=== PATIENT | male | born 2000 | race Caucasian/White ===

== ENCOUNTER 2023-04-14 19:39 | Emergency (ER) | payer SELFPAY ==
--- NOTE | ~2023-04-14 | XR_ITS ---
EXAMINATION: XR chest 2V Exam Date/Time: 04/14/2023 20:49 CDT HISTORY: chest pressure Comparison: None. RESULT: Lines, tubes, and devices: None. Lungs and pleura: Clear. Cardiomediastinal silhouette: Normal. Other: No acute osseous or upper abdominal finding. IMPRESSION: No acute cardiopulmonary process. Reviewed, dictated and finalized at location K.
[2023-04-14 19:42] VITALS: BP 152/81; PULSE 86; RESP 14; TEMP 36.7; O2SAT 99
--- NOTE | 2023-04-14 19:44 | ECG_ITS ---
Measurements Intervals [place] Rate: 104 P: 56 NE: 148 QRS: 69 QRSD: 113 T: 42 QT: 326 QTc: 430 Interpretive Statements SINUS TACHYCARDIA POSSIBLE LEFT ATRIAL ENLARGEMENT [-0.1mV P WAVE IN V1/V2] INCOMPLETE RIGHT BUNDLE BRANCH BLOCK [90+ ms QRS DURATION, TERMINAL R IN V1/V2, 40+ ms S IN I/aVL/V4/V5/V6] ABNORMAL ECG NO PREVIOUS ECG AVAILABLE FOR COMPARISON Electronically Signed On 04-15-2023 12:38:40 CDT by Blane Frederick M.D.
[2023-04-14 20:02] LABS: Basophils Percent Auto 0.3 % (0.2-1.2); Eosinophils Absolute Auto 0.2 K/mm3 (0-0.3); Eosinophils Percent Auto 2.1 % (0-4.4); Hematocrit 47.7 % (42.0-52.0); Hemoglobin 16.3 g/dL (14.0-18.0); Immature Granulocyte Absolute 0.03 K/mm3 (0.00-0.031); Immature Granulocyte Percent A 0.3 % (0-0.5); Mean Corpuscular HGB Conc 34.2 g/dl (32-36); Mean Corpuscular Hemoglobin 28.4 pg (26-34); Mean Corpuscular Volume 83.2 fl (80-100); Mean Platelet Volume 9.9 fl (7.4-10.4); Monocytes Absolute Auto 0.6 K/mm3 (0.1-0.6); Monocytes Percent Auto 5.5 % (2.6-8.5); Neutrophils Absolute Auto 5.5 K/mm3 (1.3-6.7); Neutrophils Percent Auto 48.8 % (45.5-73.1); Platelet Count Result 256 k/mm3 (150-375); Red Blood Count 5.73 M/mm3 (4.6-6.20); Red Cell Distribution Width 12.4 % (11.5-14.5); White Blood Count 11.2 K/mm3 (4.5-10.0)
[2023-04-14 20:12] LABS: Alanine Aminotransferase 57 U/L (6-50); Albumin Level 4.9 g/dL (3.5-5.1); Alkaline Phosphatase 67 U/L (38-126); Anion Gap 12 mmol/L (8-16); Aspartate Amino Transferase 35 U/L (17-59); Bilirubin,Total 0.3 mg/dL (0.2-1.3); Blood Urea Nitrogen 17 mg/dL (9-20); Calcium 9.7 mg/dL (8.4-10.2); Carbon Dioxide 26 mmol/L (22-30); Chloride 103 mmol/L (98-107); Estimated CRCL calculation 124 ml/min; Estimated Glomerular Filt Rate > 60; Glucose 104 mg/dL (65-110); Potassium 3.7 mmol/L (3.4-5.0); Sodium 141 mmol/L (137-145)
[2023-04-14 22:21] VITALS: BP 146/84; PULSE 68; RESP 17; O2SAT 100
[2023-04-14 22:26] VITALS: BP 146/84; PULSE 72; RESP 20; TEMP 36.7; O2SAT 99
--- NOTE | 2023-04-15 00:35 | ED.GENADULT ---
HPI - General Adult General Chief complaint: Dizziness Stated complaint: dizzy Time Seen by Provider: 04/14/23 23:22 History of Present Illness HPI narrative: This is a 22-year-old male presenting ED with chief complaint of vertigo. Patient says starting yesterday he started to have a sensation of the urgent moving. It is triggered by head movement and resolved in between episodes. Patient had some nausea but no vomiting. Denies double vision, dysphagia, dysarthria or loss of coordination. No numbness tingling weakness in extremity. Patient also states that he gets motion sickness frequently and was on a boat earlier today which did not improve his symptoms. Patient denies URI symptoms, ear pain, loss of hearing. Denies chest pain difficulty breathing abdominal pain nausea vomiting diarrhea. Related Data Allergies Allergy/AdvReac Type Severity Reaction Status Date / Time No Known Allergies Allergy Unknown Unknown Verified 04/14/23 22:42 Exam Narrative: APPEARANCE: No apparent distress. Head: atraumatic. tympanic membranes normal EYES: EOMI, NOSE: Atraumatic NECK: Trachea midline RESPIRATORY: No increased rate of breathing, clear to auscultation CARDIOVASCULAR: RRR, ABDOMINAL: Non-distended MUSCULOSKELETAl: No obvious deformities NEURO: Alert. Cranial nerves 2-12 grossly intact. Sensation light touch, motor function cerebellar function intact for 4 extremities. Gait exam was normal. No nystagmus at rest. SKIN:: Warm, dry. Normal color PSYCHIATRIC: Normal affect Course Vital Signs Vital signs: Vital Signs Temperature 98.0 F 04/14/23 19:42 Pulse Rate 86 04/14/23 19:42 Respiratory Rate 14 04/14/23 19:42 Blood Pressure 152/81 H 04/14/23 19:42 Pulse Oximetry 99 04/14/23 19:42 Oxygen Delivery Room Air 04/14/23 19:42 Temperature 98.1 F 04/14/23 22:26 Pulse Rate 72 04/14/23 22:26 Respiratory Rate 20 04/14/23 22:26 Blood Pressure 146/84 H 04/14/23 22:26 Pulse Oximetry 99 04/14/23 22:26 Oxygen Delivery Room Air 04/14/23 22:26 Medical Decision Making [facility] Narrative Medical decision making narrative: -Presentation: 22-year-old male presenting ED with 1 day of episodic/triggerable vertigo w/ a normal neuro exam. -DDX includes but is not limited to: BPPV, posterior stroke, inner ear pathology -Co-morbidities complicating care: motion sickness -Social determinants of health: patient remodels houses for living. -External Chart Review: none -Hx from independent Sources: girlfrienjesús [facility] bedside -Independent interpretation of studies: laboratory studies were ordered per nursing protocol. They are all within normal limits. Chest x-ray is unremarkable. Independent EKG interpretation: Rhythm [sinus], Rate [104], [place] -[normal], NV -[normal], QRS [narrow], QTC [normal], T waves -[negative for concerning inversions], ST Segments - [Negative for concerning elevations] Final interpretations: sinus tachycardia tachycardia resolved without intervention. -Discussion of Management/Consultants: None -Dx tests considered but not ordered: brain imaging- posterior stroke considered but unlikely given the trigger bowl a tree the episodes, patient's young age and lack of risk factors. -Procedures: None -Interventions: meclizine, scopolamine -Shared decision making / Disposition: patient's history physical consistent with BPPV. He is able to ambulate without difficulty. Patient will be discharged with medications and instructions on how to perform the Francis maneuver. -RX Meclizine, scopolamine Vital Signs Vital Signs: Vital Signs Temperature 98.0 F 04/14/23 19:42 Pulse Rate 86 04/14/23 19:42 Respiratory Rate 14 04/14/23 19:42 Blood Pressure 152/81 H 04/14/23 19:42 Pulse Oximetry 99 04/14/23 19:42 Oxygen Delivery Room Air 04/14/23 19:42 Temperature 98.1 F 04/14/23 22:26 Pulse Rate 72 04/14/23 22:26 Respiratory Rate 20
[2023-04-15] MEDS: MECLIZINE HCL 25 MG TABLET PO (00:39)
[2023-04-15] MEDS: SCOPOLAMINE 1.5 MG PATCH TRANSDERM (00:40)
[2023-04-15 01:05] VITALS: BP 132/71; PULSE 87; RESP 16; O2SAT 100
== END 2023-04-15 01:07 | disposition home or self-care (01) ==
PROVIDERS: Emergency Provider Emergency Medicine
DX: R42 Dizziness and giddiness (principal); I45.10 Unspecified right bundle-branch block; R00.0 Tachycardia, unspecified; R94.31 Abnormal electrocardiogram [ECG] [EKG]
CPT/HCPCS: 36415; 71046; 80053; 85025; 93005; 99283; A9270

== ENCOUNTER 2023-09-07 20:35 | Emergency (ER) | payer BC, SELFPAY ==
--- NOTE | ~2023-09-07 | CT_ITS ---
EXAMINATION: CT brain wo con DATE: 09/07/2023 22:25 INDICATION: Headache. TECHNIQUE: Computed tomography (CT) of the head was performed without intravenous contrast. The mA wa s adjusted according to patient size. Iterative reconstruction technique was employed. The dose-lengt h product was 605.33 mGy-cm. COMPARISON: None FINDINGS: There is no intracranial hemorrhage, acute infarction, or abnormal intracranial mass lesion . The ventricles are normal in size. The paranasal sinuses are clear. The mastoid air cells are jo l. IMPRESSION: 1. Normal brain. Reviewed, dictated and finalized at location E. HIC [employer] WORKER IMPRESSION: 1. Normal brain.
[2023-09-07 20:38] VITALS: BP 182/65; PULSE 83; RESP 18; TEMP 36.4; O2SAT 100
--- NOTE | 2023-09-07 21:11 | PC.NURSE ---
pt come in with multiple complaints. pt c/o dizziness, palpitations, fatigue, mental confusion, and nausea. pt states this has been going on for awhile. pt in no acute distress. pt A&Ox4, denies any chest pain at this time, airway patent, breathing even/unlabored. gait steady, skin pink warm and dry.
--- NOTE | 2023-09-07 22:02 | ECG_ITS ---
Measurements Intervals [place] Rate: 80 P: 42 [place]: 152 QRS: 62 QRSD: 111 T: 36 QT: 361 QTc: 418 Interpretive Statements SINUS RHYTHM INTRAVENTRICULAR CONDUCTION DELAY BORDERLINE ECG COMPARED TO ECG 04/14/2023 19:51:12 SINUS RHYTHM NOW PRESENT Electronically Signed On 09-08-2023 6:42:00 [employer] by Christos Varela D.O.
--- NOTE | 2023-09-07 22:04 | ED.DIZZY ---
HPI - Dizziness General Chief Complaint: Dizziness Stated Complaint: dizzy Time Seen by Provider: 09/07/23 21:35 Source: patient Limitations: no limitations History of Present Illness HPI Narrative: Patient is a 23-year-old male presents to the emergency department with multiple complaints. Patient states for multiple months he has been experiencing intermittent dizziness that he describes as sometimes feeling spinning that comes on with fast movements mother goes away promptly and also sometimes feels brain fog 1 at work and trying to focus and also is frequently getting motion sickness when driving in cars and he has been trying trauma main regularly. Patient denies seeing a primary care physician regular basis and has never seen a ENT. Patient admits to having an upcoming appoint with her primary care physician after finally obtaining health insurance. Patient is also concerned that he may have blood sugar issues because when he was feeling somewhat of the brain for today he took a glucose supplemented is present at work in the 1st aid kit and it seemed to help him. Patient admits to intermittent nausea with the dizziness. Patient also admits to occasional headaches that are dull and has a mild 1 currently it is generalized, nonradiating, not maximal intensity upon onset, denies anyone having similar symptoms around him, denies any recent injuries. Patient denies fever, cough, chest pain, shortness of breath, abdominal pain, vomiting, diarrhea, rash, numbness, weakness, ear pain, hearing changes, neck stiffness, sore throat, nasal congestion, dysuria, urinary frequency, urinary urgency, bloody bowel movements. Patient admits to his urine being typically darker in color and has been now well hydrated. Patient also works long hours at work and was sent 9 maintaining good nourished min during those times. Patient denies anything acutely changing prompting him to seek evaluation today right leg he has never had any blood work done and wanted to get checked out. Related Data Allergies Allergy/AdvReac Type Severity Reaction Status Date / Time No Known Allergies Allergy Unknown Unknown Verified 09/07/23 20:45 Review of Systems Review of Systems: A 10 system review of systems was completed on the patient and is negative except for what is stated in the HPI. Nursing and ancillary documentation was reviewed. PMFSH Comments At time of signature, I have reviewed and agree with nursing past medical, surgical, social and family history unless otherwise noted. Please see the nursing chart for further information. There is no relevant family history pertinent to the presenting complaint. Exam Narrative: CONST: No acute distress. Well nourished. HENMT: Head is normocephalic and atraumatic. Moist mucous membranes. No posterior oropharynx erythema. Bilateral tympanic membranes are without injection or bulging. No fluid in the middle ear cavities bilaterally. Bilateral ear canals are without erythema. EYES: No conjunctival icterus, injection, or pallor. PERRL. No nystagmus. Extraocular motions intact. NECK: No meningeal signs. No carotid bruits bilaterally. RESP: Able to speak in full sentences. Normal respiratory effort. CTAB. CARDIO: Regular rate. Regular rhythm. 2+ DP and radial pulses bilaterally. GI: Nondistended. No tenderness to palpation. Soft. : No CVA tenderness to palpation. SKIN: No rashes or lesions noted on exposed skin. NEURO: Oriented x3. Moves all extremities. No focal neurological deficits. Negative Tammie-Hallpike bilaterally. No dysmetria with [id number] testing bilaterally. Stable gait. EXTREM/MSK/BACK: No pedal edema. PSYCH: Normal affect. Course Vital Signs Vital signs: Vital Signs Temperature 97.6 F 09/07/23 20:38 Pulse Rate 83 09/07/23 20:38 Respiratory Rate 18 09/07/23 20:38 Blood Pressure 182/65 H 09/07/23 20:38 Pulse Oximetry 100 09/07/23 20:38 Oxygen Delivery Room Air 09/07
[2023-09-07] MEDS: SODIUM CHLORIDE 0.9% IV 1,000 ML 999 ML IV CONT (22:30)
[2023-09-07] MEDS: PROCHLORPERAZINE EDISYLATE 10 MG/2 ML VIAL IV PUSH (22:31)
[2023-09-07] MEDS: KETOROLAC 15 MG/ML VIAL (*BKC) IV PUSH (22:31)
[2023-09-07] MEDS: diphenhydrAMINE HCl INJ 50 MG/ML VIAL 25 MG IV PUSH (22:31)
[2023-09-07 22:38] LABS: Basophils Percent Auto 0.3 % (0.2-1.2); Eosinophils Absolute Auto 0.2 K/mm3 (0-0.3); Eosinophils Percent Auto 2.2 % (0-4.4); Hematocrit 48.2 % (42.0-52.0); Immature Granulocyte Absolute 0.02 K/mm3 (0.00-0.031); Immature Granulocyte Percent A 0.2 % (0-0.5); Lymphocytes Absolute Auto 3.84 K/mm3 (0.9-3.2); Lymphocytes Percent Auto 40.3 % (18.3-44.2); Mean Corpuscular HGB Conc 33.2 g/dl (32-36); Mean Corpuscular Hemoglobin 27.7 pg (26-34); Mean Corpuscular Volume 83.4 fl (80-100); Mean Platelet Volume 10.2 fl (7.4-10.4); Monocytes Absolute Auto 0.6 K/mm3 (0.1-0.6); Monocytes Percent Auto 5.9 % (2.6-8.5); Neutrophils Absolute Auto 4.9 K/mm3 (1.3-6.7); Neutrophils Percent Auto 51.1 % (45.5-73.1); Platelet Count Result 258 k/mm3 (150-375); Red Blood Count 5.78 M/mm3 (4.6-6.20); Red Cell Distribution Width 12.3 % (11.5-14.5); White Blood Count 9.5 K/mm3 (4.5-10.0)
[2023-09-07 22:48] LABS: Alanine Aminotransferase 86 U/L (6-50); Albumin Level 4.6 g/dL (3.5-5.1); Alkaline Phosphatase 71 U/L (38-126); Anion Gap 10 mmol/L (8-16); Aspartate Amino Transferase 46 U/L (17-59); Bilirubin,Total 0.4 mg/dL (0.2-1.3); Blood Urea Nitrogen 16 mg/dL (9-20); Calcium 9.6 mg/dL (8.4-10.2); Carbon Dioxide 29 mmol/L (22-30); Chloride 104 mmol/L (98-107); Estimated CRCL calculation 153 ml/min; Estimated Glomerular Filt Rate > 60; Glucose 95 mg/dL (65-110); Magnesium 2.1 mg/dL (1.6-2.3); Potassium 4.1 mmol/L (3.4-5.0); Sodium 143 mmol/L (137-145)
[2023-09-07 22:50] VITALS: BP 127/72; PULSE 85; RESP 16; O2SAT 100
[2023-09-07 23:19] LABS: Thyroid Stimulating Hormone Reflex 0.913 uIU/mL (0.465-4.68)
[2023-09-08 00:52] VITALS: BP 146/79; PULSE 78; RESP 19; TEMP 36.6; O2SAT 99
== END 2023-09-08 00:53 | disposition home or self-care (01) ==
PROVIDERS: Emergency Provider Student in an Organized Health Care Education/Training Program
DX: R42 Dizziness and giddiness (principal); R51.9 Headache, unspecified; I45.9 Conduction disorder, unspecified
CPT/HCPCS: 36415; 70450; 80053; 83735; 84443; 85025; 93005; 96361; 96374; 96375; 99284; J0780; J1200; J1885; J7030